=== PATIENT | male | born 1940 | race Caucasian/White ===

== ENCOUNTER → 2016-06-21 | Outpatient (CLI) | payer MEDICARE, OTHER ==
[~2016-06-21] MED LIST: ACET1TAB43 PO; ATEN100T88 PO; CIPR-226 PO; CYCL10TA9 PO; EZET1TAB36 PO; LSNP10T PO; NAPR-243 PO; VITAMIN D 1000 MG
== END ==
LOC: ONC 13:22
PROVIDERS: ATTEND Radiology Radiation Oncology
DX: C61 Malignant neoplasm of prostate (principal)
CPT/HCPCS: 84153

== ENCOUNTER → 2016-12-20 | Outpatient (CLI) | payer MEDICARE, OTHER | LOC: ONC 13:15 → EDSTATUS 13:19 | PROVIDERS: ATTEND Radiology Radiation Oncology | DX: C61 Malignant neoplasm of prostate (principal) | CPT/HCPCS: 84153 ==

== ENCOUNTER → 2017-12-18 | Outpatient (CLI) | payer MEDICARE, OTHER | LOC: ONC 12:55 | PROVIDERS: ATTEND Radiology Radiation Oncology | DX: C61 Malignant neoplasm of prostate (principal) | CPT/HCPCS: 84153 ==

== ENCOUNTER → 2018-06-18 | Outpatient (CLI) | payer MEDICARE, OTHER | LOC: LAB 13:13 | PROVIDERS: ATTEND Radiology Radiation Oncology | DX: C61 Malignant neoplasm of prostate (principal) | CPT/HCPCS: 36415; 84153 ==

== ENCOUNTER → 2018-12-18 | Outpatient (CLI) | payer MEDICARE, OTHER | LOC: ONC 13:01 | PROVIDERS: ATTEND Radiology Radiation Oncology | DX: C61 Malignant neoplasm of prostate (principal) | CPT/HCPCS: 36415; 84153 ==

== ENCOUNTER → 2019-08-06 | Outpatient (CLI) | payer MEDICARE, OTHER | LOC: ONC 09:13 | PROVIDERS: ATTEND Radiology Radiation Oncology | DX: Z01.89 Encounter for other specified special examinations (principal); Z53.8 Procedure and treatment not carried out for other reasons ==